=== PATIENT | female | born 2000 | race African-American/Black ===

== ENCOUNTER 2019-12-08 16:22 | Emergency (ER) | payer SELFPAY ==
[2019-12-08 16:26] VITALS: BP 125/84; PULSE 87; RESP 16; TEMP 31.6; O2SAT 100
--- NOTE | 2019-12-08 17:42 | ED.URI ---
HPI - URI/Sore Throat General Chief Complaint: Upper Respiratory Infection Stated Complaint: 5WKS PREG MULTI C/O Time Seen by Provider: 12/08/19 17:38 Source: patient and RN notes reviewed Mode of arrival: ambulatory Limitations: no limitations History of Present Illness HPI Narrative: A 19 y/o female, who is 8 weeks gravid, presents to the ED with constant nasal congestion for the past 2 months. She states that she was recently [facility] and was dx with a sinus infection and was started on Augmentin. She reports that the abx hasn't been helping and that this morning she developed some SOB, dizziness, lightheadedness, and a PHAM. She notes that she is scheduled to see her OBGYN next week. She denies any vaginal bleeding, vaginal discharge, N/V/D, or ABD pain. No cramping type pain. No dysuria or hematuria. MD elicited complaint: nasal congestion Pertinent past history: asthma Onset (ago): month(s) (2) Consistency: constant Relieving factors: nothing Associated symptoms: headache, shortness of breath and other (dizziness and lightheadedness) Treatments prior to arrival: antibiotics (Augmentin) Related Data Allergies Allergy/AdvReac Type Severity Reaction Status Date / Time No Known Allergies Allergy Verified 12/08/19 18:05 Review of Systems Review of Systems: Narrative: ENT: Reports nasal congestion. CARDIOVASCULAR: Reports lightheadedness. RESPIRATORY: Reports dyspnea. GASTROINTESTINAL: Denies abdominal pain, nausea, vomiting, or diarrhea. GENITOURINARY: Denies vaginal bleeding or vaginal discharge. No cramping type pain NEUROLOGIC: Reports intermittent headache, reports intermittent dizziness, none currently. No numbness. All systems reviewed & are unremarkable except as noted in HPI and below PMFSH Past Medical History Medical History Asthma Surgical History Surgical History No history of previous surgery Social History Social History (Updated 12/08/19 @ 17:56 by Itz Flaherty) Smoking status: Unknown if ever smoked Exam Narrative: Exam Narrative: GENERAL: Well-appearing, well-nourished, and in no acute distress. HEAD: Normocephalic, atraumatic. Rhinorrhea and sinus congestion. EYES: PERRLA and EOMI. ENT: Nares clear, no rhinorrhea or epistaxis. Mucous membranes moist. NECK: Supple. CHEST: Clear to auscultation. No respiratory distress. HEART: Regular rate and rhythm. No murmur heard. Normal peripheral pulses. ABDOMEN: Soft, nontender, nondistended, normal active bowel sounds. EXTREMITIES: Normal range of motion. No edema. SKIN: Warm, dry, no rash. NEURO: No focal deficits. Alert and oriented X3. EOMs intact without nystagmus. No facial droop/asymmetry noted bilaterally. Grimace intact. Intact sensation in face. Hearing intact bilaterally. Shoulder shrug intact. Strength 5/5 bilateral upper extremities. Strength 5/5 bilateral lower extremities. Reflexes 2+ patellar. Ambulatory with a narrow base, steady gait, no ataxia. Course Course Emergency Course: Patient presented for evaluation of rhinorrhea and sinus congestion over the past 2 months. Patient has been seen by her salesperson men's hats, she has been seen in the [facility] as well as also emergency department, and patient is reporting that she continues to have sinus congestion despite being on Augmentin. Patient is currently taking his medication as prescribed. She denies fever, no current shortness of breath. No current respiratory distress. Oxygenation is 100% on room air, no tachypnea or increased work of breathing. Patient does not have any audible wheezing. Her nares are clear and patent bilaterally without epistaxis or mass. Patient has a normal neurological exam. No deficits. No neck tenderness. Influenza is negative here. Urinalysis was sent, patient does have asymptomatic bacteria for which we will treat for. In regards to her congestion type symptoms, I educated the pa
[2019-12-08 18:03] VITALS: BP 134/83; PULSE 77; RESP 17; O2SAT 100
[2019-12-08 18:25] LABS: Add Urine Microscopic? YES; Amorphous Sediment Urine Few; Appearance Urine Clear (Clear); Bacteria Urine Trace /hpf; Bilirubin Urine Negative (Negative); Blood Urine Negative (Negative); Color Urine Yellow (Yellow); Glucose Urine UA Negative (Negative); Ketones Urine Trace mg/dL (Negative); Leukocyte Esterase Ur Trace LEU/UL (Negative); Mucus Urine Rare /lpf; Nitrate Urine Negative (Negative); Protein Urine Negative (Negative); RBC Urine 0-2 /hpf (0-2); Specific Grav Ur 1.026 (1.001-1.035); Squamous Epithelial Cell Urine Many /hpf (Few); Urobilinogen Urine Negative mg/dL (<2.0)
[2019-12-08 18:26] VITALS: PULSE 76; RESP 20
[2019-12-08] MEDS: IPRATROPIUM BR 0.02% INH SOLN 0.5 MG/2.5 ML VIAL INHALATION (18:26)
[2019-12-08] MEDS: ALBUTEROL SULFATE NEB 2.5 MG/0.5 ML INH 5 MG INHALATION (18:26)
[2019-12-08] MEDS: ACETAMINOPHEN 500 MG TABLET 1000 MG PO (18:40)
[2019-12-08 18:52] VITALS: TEMP 36.9
== END 2019-12-08 18:55 | disposition home or self-care (01) ==
PROVIDERS: Emergency Provider Emergency Medicine
DX: O99.511 Diseases of the respiratory system complicating pregnancy, first trimester (principal); J06.9 Acute upper respiratory infection, unspecified; J45.909 Unspecified asthma, uncomplicated; O26.891 Other specified pregnancy related conditions, first trimester; R82.71 Bacteriuria; Z3A.08 8 weeks gestation of pregnancy
CPT/HCPCS: 81001; 87086; 87804; 94640; 99283; A9270